=== PATIENT | female | born 1965 | race Caucasian/White ===

== ENCOUNTER → 2017-09-02 | Outpatient (CLI) | payer BC ==
[2017-09-02] MEDS: BUPIVACAINE MPF 0.5% 10 ML VIAL for KCIC. IJ (13:27)
[2017-09-02] MEDS: LIDOCAINE 1% Multi-Dose 20 ML VIAL. ID (13:27)
[2017-09-02] MEDS: methylPREDNISolone ACETATE 40 MG/ML VIAL. INT ART (13:28)
[2017-09-02] MEDS: IOHEXOL 300 MG/ML 50 ML VIAL. INT ART (13:28)
== END | disposition home or self-care (01) ==
LOC: KCIC 11:45
DX: M16.12 Unilateral primary osteoarthritis, left hip (principal); Z88.5 Allergy status to narcotic agent; I10 Essential (primary) hypertension; F17.200 Nicotine dependence, unspecified, uncomplicated
CPT/HCPCS: 20610; 77002; J1030; Q9967

== ENCOUNTER → 2017-10-10 | Outpatient (CLI) | payer BC ==
[2017-10-10 09:36] LABS: ADD MAN DIFF? NO
[2017-10-10 10:05] LABS: ALBUMIN 3.7 g/dL (3.4-5.0); ANION GAP 9 (6-14); BASO % 0 % (0-3); BLOOD UREA NITROGEN 12 mg/dL (7-20); CALCIUM 9.8 mg/dL (8.5-10.1); CARBON DIOXIDE 28 mmol/L (21-32); CHLORIDE 103 mmol/L (98-107); CREATININE 0.8 mg/dL (0.6-1.0); EOS # 0.1 x10^3/uL (0.0-0.7); EOS % 1 % (0-3); GFR 74.7; GLUCOSE 101 mg/dL (70-99); HEMATOCRIT 40.9 % (36.0-47.0); HEMOGLOBIN 14.1 g/dL (12.0-15.5); LYMPH # 1.7 x10^3/uL (1.0-4.8); LYMPH % 17 % (24-48); MEAN CORPUSCULAR HEMOGLOBIN 32 pg (25-35); MEAN CORPUSCULAR HGB CONC 34 g/dL (31-37); MEAN CORPUSCULAR VOLUME 93 fL (79-100); MONO # 0.5 x10^3/uL (0.0-1.1); MONO % 5 % (0-9); NEUT # 7.8 x10^3uL (1.8-7.7); NEUT % 77 % (31-73); PLATELET COUNT 289 x10^3/uL (140-400); POTASSIUM 3.7 mmol/L (3.5-5.1); RED CELL DISTRIBUTION WIDTH 13.5 % (11.5-14.5); SODIUM 140 mmol/L (136-145); WHITE BLOOD COUNT 10.2 x10^3/uL (4.0-11.0)
[2017-10-10 10:21] LABS: PARTIAL THROMBOPLASTIN TIME 30 SEC (24-38); PROTHROMBIN TIME PATIENT 12.6 SEC (11.7-14.0)
[2017-10-10 12:07] LABS: SEDIMENTATION RATE 30 (0-25)
[2017-10-10 13:26] LABS: BILIRUBIN,URINE SMALL (NEG); CLARITY,URINE CLEAR; COLOR,URINE YELLOW; GLUCOSE,URINE NEGATIVE (NEG); NITRITE,URINE NEGATIVE (NEG); PROTEIN,URINE NEGATIVE (NEG-TRACE)
[2017-10-10 14:11] LABS: BACTERIA,URINE 0 /HPF (0-FEW); SQUAMOUS EPITHELIAL CELL,UR MOD /LPF; WBC,URINE 0 /HPF (0-4); YEAST,URINE PRESENT /HPF
[2017-10-10 23:13] LABS: MRSA BY PCR Negative (Negative)
== END | disposition home or self-care (01) ==
LOC: SURGPAT 13:13
DX: Z01.818 Encounter for other preprocedural examination (principal); I10 Essential (primary) hypertension; Z87.891 Personal history of nicotine dependence
CPT/HCPCS: 36415; 71046; 80048; 81001; 82040; 85025; 85610; 85651; 85730; 87641; 93005

== ENCOUNTER 2017-10-24 06:02 | Inpatient (IN) | payer BC ==
[2017-10-24] MEDS ORDERED: IV RINGERS,LACTATED 1000ML 1,000 ML IV (07:00)
[2017-10-24] MEDS: SCOPOLAMINE 1.5MG PATCH. TD (07:00)
[2017-10-24] MEDS: HYDROcodone/APAP 7.5/325MG 1 TAB TABLET PO (07:00)
[2017-10-24] MEDS ORDERED: PROCHLORPERAZINE 10 MG/2 ML VIAL. IV ×2 (07:00→09:30)
[2017-10-24] MEDS ORDERED: LIDOCAINE 1% PF 2 ML VIAL. ID ×2 (07:00)
[2017-10-24] MEDS: IV RINGERS,LACTATED 1000ML 1,000 ML IV (07:00)
[2017-10-24] MEDS ORDERED: fentaNYL PF VIAL 100 MCG/2 ML VIAL IV ×3 (07:00)
[2017-10-24] MEDS: MELOXICAM 7.5 MG TABLET PO (07:01)
[2017-10-24] MEDS ORDERED: LIDOCAINE 2% PF Vial for OR 5 ML VIAL. (07:07)
[2017-10-24] MEDS ORDERED: ROCURONIUM 50 MG/5 ML VIAL. (07:07)
[2017-10-24] MEDS ORDERED: PROPOFOL 20 ML IV (07:07)
[2017-10-24] MEDS ORDERED: MIDAZOLAM HCL/PF 2 MG/2 ML VIAL. (07:07)
[2017-10-24] MEDS ORDERED: fentaNYL PF VIAL 250 MCG/5 ML VIAL ×2 (07:08→07:58)
[2017-10-24 07:32] LABS: PARTIAL THROMBOPLASTIN TIME 28 SEC (24-38); PROTHROMBIN TIME PATIENT 12.4 SEC (11.7-14.0)
[2017-10-24] MEDS: TRANEXAMIC ACID 1,000 MG in IV NS 50ML -- 1ST BAG INJ (07:36)
[2017-10-24] MEDS: TV=100ml MORPHINE 5 MG, KETOROLAC 30 MG, ROPIVacaine 0.5% PF 60 ML, EPINEPH... INT ART (07:46)
[2017-10-24] MEDS ORDERED: DEXAMETHASONE SOD PHOS 20 MG/5 ML VIAL. (07:52)
[2017-10-24] MEDS ORDERED: ONDANSETRON PF 4 MG/2 ML VIAL. (07:52)
[2017-10-24] MEDS ORDERED: MORPHINE SULFATE 10 MG/ML VIAL. (08:11)
[2017-10-24] MEDS ORDERED: GLYCOPYRROLATE 1 MG/5 ML VIAL. (08:44)
[2017-10-24] MEDS ORDERED: NEOSTIGMINE METHYLSULFATE 5 MG/5 ML SYRINGE. (08:44)
[2017-10-24] MEDS ORDERED: PHENYLEPHRINE in 0.9% NACL PF 1 MG/10 ML SYRINGE. IV (08:53)
[2017-10-24] MEDS: TRANEXAMIC ACID 1,000 MG in IV NS 50ML -- 2ND BAG INJ (09:00)
[2017-10-24] MEDS: IV NORMAL SALINE 1000ML BAG 1,000 ML IV (09:30)
[2017-10-24] MEDS ORDERED: DEXTROSE 50% 25 GM / 50ML DISP.SYRIN. IV (09:30)
[2017-10-24] MEDS ORDERED: traMADol 50 MG TABLET PO (09:30)
[2017-10-24] MEDS ORDERED: oxyCODONE/APAP 5/325 1 TAB TABLET PO (09:30)
[2017-10-24] MEDS ORDERED: NALOXONE 0.4 MG/ML VIAL. IV (09:30)
[2017-10-24] MEDS ORDERED: HYDROcodone/APAP 7.5/325MG 1 TAB TABLET PO (09:30)
[2017-10-24] MEDS ORDERED: METOCLOPRAMIDE HCL 10 MG/2 ML VIAL. IV (09:30)
[2017-10-24] MEDS ORDERED: ACETAMINOPHEN 325 MG TABLET. PO (09:30)
[2017-10-24] MEDS ORDERED: diphenhydrAMINE 50 MG/ML VIAL IV (09:30)
[2017-10-24] MEDS ORDERED: PROCHLORPERAZINE 5 MG TABLET. PO (09:30)
[2017-10-24] MEDS ORDERED: HYDROcodone/APAP 10/325 1 TAB TABLET PO (09:30)
[2017-10-24] MEDS ORDERED: fentaNYL PF VIAL 100 MCG/2 ML VIAL (09:51)
[2017-10-24] MEDS: fentaNYL PF VIAL 100 MCG/2 ML VIAL IV ×4 (09:56→10:40)
[2017-10-24] MEDS ORDERED: SEVOFLURANE > 120 MINUTES. IH (10:08)
[2017-10-24] MEDS: PROCHLORPERAZINE 10 MG/2 ML VIAL. IV (10:52)
[2017-10-24] MEDS: MORPHINE SULFATE 4 MG/ML DISP.SYRIN. IV (12:00)
[2017-10-24] MEDS: IV DEXTROSE 5 %-0.45 % NACL 1,000 ML IV ×2 (12:04→22:29)
[2017-10-24] MEDS: CYCLOBENZAPRINE 10 MG TABLET. PO ×2 (12:05→21:06)
[2017-10-24] MEDS: MORPHINE SULFATE/PF 30 ML IV ×2 (12:29→23:42)
[2017-10-24] MEDS ORDERED: ceFAZolin SODIUM 1 GM in IV DEXTROSE 5% 50 ML IV (13:00)
[2017-10-24] MEDS: ceFAZolin SODIUM IV Push 1 GM VIAL. IVP ×2 (13:02→16:55)
[2017-10-24] MEDS: WARFARIN 7.5 MG TABLET. PO (16:55)
[2017-10-24] MEDS: FERROUS SULFATE 325 MG TABLET. PO (16:55)
[2017-10-24] MEDS: MIRTAZAPINE 15 MG TABLET PO (21:06)
[2017-10-24] MEDS: CELECOXIB 100 MG CAPSULE. PO (21:06)
[2017-10-24] MEDS: ATORVASTATIN CALCIUM 40 MG TABLET. PO (21:06)
[2017-10-24] MEDS: ZOLPIDEM 5 MG TABLET. PO (21:14)
[2017-10-25] MEDS: ceFAZolin SODIUM IV Push 1 GM VIAL. IVP (01:09)
[2017-10-25 04:48] LABS: INR 1.3 (0.8-1.1); PROTHROMBIN TIME PATIENT 15.3 SEC (11.7-14.0)
[2017-10-25 05:12] LABS: HEMATOCRIT 32.3 % (36.0-47.0); HEMOGLOBIN 10.8 g/dL (12.0-15.5); MEAN CORPUSCULAR HGB CONC 34 g/dL (31-37)
[2017-10-25] MEDS ORDERED: MAGNESIUM HYDROXIDE 2,400 MG/30 ML ORAL.SUSP. PO (06:00)
[2017-10-25] MEDS: LEVOTHYROXINE 112 MCG TABLET PO (07:11)
[2017-10-25] MEDS: PANTOPRAZOLE 40 MG TABLET.DR. PO (07:11)
[2017-10-25] MEDS: IV DEXTROSE 5 %-0.45 % NACL 1,000 ML IV ×2 (08:00→18:00)
[2017-10-25] MEDS: CYCLOBENZAPRINE 10 MG TABLET. PO ×3 (08:03→21:16)
[2017-10-25] MEDS: CITALOPRAM 20 MG TABLET. PO (08:03)
[2017-10-25] MEDS: CELECOXIB 100 MG CAPSULE. PO ×2 (08:03→21:16)
[2017-10-25] MEDS: SENNOSIDES/DOCUSATE 8.6/50MG TABLET. PO (08:04)
[2017-10-25] MEDS: MULTIVITAMIN with MINERAL TABLET. PO (08:04)
[2017-10-25] MEDS: FERROUS SULFATE 325 MG TABLET. PO ×2 (08:04→16:56)
[2017-10-25] MEDS: oxyCODONE/APAP 7.5/325 1 TAB TABLET PO (08:05)
[2017-10-25] MEDS: amLODIPine BESYLATE 5 MG TABLET PO (09:00)
[2017-10-25] MEDS: IV NORMAL SALINE 1000ML BAG 1,000 ML IV ×2 (09:30→21:07)
[2017-10-25] MEDS: CALCIUM CARBONATE 500 MG TAB.CHEW PO (12:45)
[2017-10-25] MEDS: oxyCODONE/APAP 10/325 1 TAB TABLET PO ×4 (12:46→22:25)
[2017-10-25] MEDS ORDERED: BISACODYL 10 MG SUPP.RECT. PR (16:00)
[2017-10-25] MEDS: WARFARIN 5 MG TABLET. PO (16:20)
[2017-10-25] MEDS: MAG HYDROX/ALUMINUM HYD/SIMETH 30 ML ORAL.SUSP PO (16:22)
[2017-10-25] MEDS: ATORVASTATIN CALCIUM 40 MG TABLET. PO (21:16)
[2017-10-25] MEDS: MIRTAZAPINE 15 MG TABLET PO (21:16)
[2017-10-25] MEDS: traMADol 50 MG TABLET PO (21:17)
[2017-10-25] MEDS: 0.9 % SODIUM CHLORIDE 10 ML DISP.SYRIN. IV (21:18)
[2017-10-26] MEDS: oxyCODONE/APAP 10/325 1 TAB TABLET PO ×5 (02:03→14:54)
[2017-10-26] MEDS: LEVOTHYROXINE 112 MCG TABLET PO (05:21)
[2017-10-26 06:25] LABS: INR 2.4 (0.8-1.1); PROTHROMBIN TIME PATIENT 25.1 SEC (11.7-14.0)
[2017-10-26] MEDS: PANTOPRAZOLE 40 MG TABLET.DR. PO (06:55)
[2017-10-26] MEDS: SENNOSIDES/DOCUSATE 8.6/50MG TABLET. PO (08:24)
[2017-10-26] MEDS: FERROUS SULFATE 325 MG TABLET. PO (08:24)
[2017-10-26] MEDS: CITALOPRAM 20 MG TABLET. PO (08:24)
[2017-10-26] MEDS: MULTIVITAMIN with MINERAL TABLET. PO (08:24)
[2017-10-26] MEDS: CYCLOBENZAPRINE 10 MG TABLET. PO ×2 (08:24→14:32)
[2017-10-26] MEDS: CELECOXIB 100 MG CAPSULE. PO (08:24)
[2017-10-26] MEDS: amLODIPine BESYLATE 5 MG TABLET PO (08:28)
[2017-10-26 09:06] LABS: HEMATOCRIT 31.1 % (36.0-47.0); HEMOGLOBIN 10.5 g/dL (12.0-15.5); MEAN CORPUSCULAR HGB CONC 34 g/dL (31-37)
[2017-10-26] MEDS: WARFARIN 1 MG TABLET. PO (14:33)
== END 2017-10-26 15:00 | disposition home health service (06) | DRG 470 ==
LOC: OPSVCIP 06:02 → 4 SOUTHEST 11:30
PROC: 0SRB06Z Replacement of Left Hip Joint with Oxidized Zirconium on Polyethylene Synthetic Substitute, Open Approach (ICD-10-PCS; principal; 2017-10-24 07:20)
DX: M16.12 Unilateral primary osteoarthritis, left hip (principal); Z88.5 Allergy status to narcotic agent
CPT/HCPCS: 36415; 72170; 85014; 85018; 85610; 85730; 86850; 86900; 86901; 88304; 88311; 97116-GP; 97150-GP; 97162-GP; 97166-GO; 97530-GP; 97535-GO; A7015; C1713; J0171; J0690; J0780; J1100; J1885; J2001; J2250; J2270; J2370; J2405; J2704; J2710; J2795; J3010; J3490; J7030; J7120

== ENCOUNTER 2017-11-08 09:16 | Emergency (ER) | payer BC ==
[2017-11-08] MEDS: fentaNYL PF VIAL 100 MCG/2 ML VIAL IV (10:03)
== END 2017-11-08 11:52 | disposition home or self-care (01) ==
LOC: ER 09:16
DX: K56.41 Fecal impaction (principal); Z96.649 Presence of unspecified artificial hip joint; Z88.5 Allergy status to narcotic agent
CPT/HCPCS: 74018; 96374; 99284; J3010

== ENCOUNTER → 2017-11-28 | Outpatient (CLI) | payer BC ==
[2017-11-28 11:34] LABS: INR 1.2 (0.8-1.1); PROTHROMBIN TIME PATIENT 15.1 SEC (11.7-14.0)
== END | disposition home or self-care (01) ==
LOC: LAB 09:53
DX: Z79.01 Long term (current) use of anticoagulants (principal); I10 Essential (primary) hypertension; M16.12 Unilateral primary osteoarthritis, left hip
CPT/HCPCS: 36415; 85610

== ENCOUNTER → 2018-01-24 | Outpatient (CLI) | payer BC ==
[2017-11-08 11:10] VITALS: BP 122/56
[~2018-01-24] MED LIST: AMLO5TAB7 PO; ATOR40TA59 PO; CYCL10TA2 PO; DOCU-150 PO; ESCITALOPRAM OX20 MG PO; HYDR-2766 PO; LEVO112T4 PO; MIRT30TA3 PO; OXYC-411 PO; PANT40TA5 PO; TRAM50TA PO; WARF1TAB74 PO
--- NOTE | 2018-01-24 16:08 | KCIC ---
MRI of the lumbar spine to include the sacrum without contrast 01/24/2018 CLINICAL HISTORY: Low back pain and sacral pain which radiates down the left hip. TECHNIQUE: Unenhanced T1-weighted and T2-weighted sagittal and axial and inversion recovery sagittal images the lumbar spine were obtained. T1-weighted and fat-saturated T2-weighted sagittal axial and coronal and T2-weighted axial images of the sacrum were obtained. FINDINGS: Minimal S-shaped curvature of the thoracolumbar spine is seen. Degenerative signal changes and loss of height are seen involving the L5-S1 discs. Degenerative signal changes are seen within the marrow surrounding this disc. The conus medullaris is normal morphology, position, and signal characteristics. At the L1-2 and L2-3 disc spaces there are minimal to mild generalized disc bulges. Degenerative changes are seen involving the facet joints bilaterally. These findings do not result in significant central spinal canal or neural foraminal stenosis. At the L3-4 disc space there is a mild generalized disc bulge. This is eccentric to the left. Degenerative changes are seen involving the facet joints bilaterally. There is mild ligamentum flavum hypertrophy bilaterally. There is prominence of the posterior epidural fat. These findings when combined result in mild central spinal canal stenosis. No neural foraminal stenosis is seen. At the L4-5 disc space there is a mild generalized disc bulge. This is eccentric to the left. Degenerative changes are seen involving the facet joints bilaterally. There is mild to moderate ligamentum flavum hypertrophy bilaterally. These findings when combined result in mild central spinal canal stenosis. No neural foraminal stenosis is seen. At the L5-S1 disc space there is a minimal generalized disc bulge. Degenerative changes are seen involving the facet joints bilaterally. Small facet joint effusions are seen. Synovial cysts are seen projecting posteriorly from the facet joints. These measure 7 to 8 mm in size. There is mild ligamentum flavum hypertrophy bilaterally. These findings when combined do not result in significant central spinal canal or neural foraminal stenosis. The marrow signal of the sacrum/coccyx is within normal limits. Mild degenerative changes are seen involving both SI joints. No occult fracture is seen. No abnormal soft tissue mass is noted. IMPRESSION: 1. The changes of degenerative disc disease are seen involving the lumbar spine. These findings results in mild central spinal canal stenosis at L3-4 and L4-5. No neural foraminal stenosis is seen. 2. Mild degenerative changes are seen involving both SI joints. Electronically signed by: Henry Fishman MD (01/24/2018 4:04 PM) [facility]-[id number]
== END | disposition home or self-care (01) ==
LOC: KCIC MRI 14:02
PROVIDERS: ATTEND Family Medicine
DX: M51.36 Other intervertebral disc degeneration, lumbar region (principal); M47.898 Other spondylosis, sacral and sacrococcygeal region; M48.061 Spinal stenosis, lumbar region without neurogenic claudication; M25.48 Effusion, other site; M71.38 Other bursal cyst, other site; I10 Essential (primary) hypertension; Z87.891 Personal history of nicotine dependence; Z88.5 Allergy status to narcotic agent
CPT/HCPCS: 72148; 72195

== ENCOUNTER → 2018-08-02 | Outpatient (CLI) | payer BC ==
[2017-11-08 11:10] VITALS: BP 122/56
[~2018-08-02] MED LIST changes: +AMLO5TAB10 PO; -AMLO5TAB7 PO; -HYDR-2766 PO; +HYDR-2769 PO
--- NOTE | 2018-08-02 11:09 | KCIC ---
EXAM: Lumbar spine, 5 views. HISTORY: Pain. COMPARISON: MRI dated 01/24/2018. FINDINGS: 5 views lumbar spine are obtained. There is minimal lumbar levocurvature centered at L4. There is minimal retrolisthesis of L5 on S1. There is minimal decreased anterior vertebral body height and the superior endplate Schmorl's node at L1. No acute or subacute fracture is seen. There is facet arthropathy predominantly at the lower lumbar levels. There is a left hip arthroplasty partially included on the [id number]. IMPRESSION: 1. Multilevel degenerative change, primarily at the lumbosacral junction. 2. No acute osseous finding. Electronically signed by: Jaja León MD (08/02/2018 11:06 AM) [id number]
== END | disposition home or self-care (01) ==
LOC: KCIC 10:14
PROVIDERS: ATTEND Family Medicine
DX: M47.817 Spondylosis without myelopathy or radiculopathy, lumbosacral region (principal); M12.88 Other specific arthropathies, not elsewhere classified, other specified site; Z96.642 Presence of left artificial hip joint
CPT/HCPCS: 72110

== ENCOUNTER → 2018-12-19 | Outpatient (CLI) | payer BC ==
[2017-11-08 11:10] VITALS: BP 122/56
[~2018-12-19] MED LIST changes: -PANT40TA5 PO; +PANT40TA77 PO
--- NOTE | 2018-12-19 15:01 | KCIC ---
EXAM: Abdomen, single view. HISTORY: Foreign body. Naval ring ball missing. COMPARISON: None. FINDINGS: A frontal view of the abdomen is obtained. There is gas and stool within the colon. There is no evidence of bowel obstruction. There are calcifications and clips. There is a left hip arthroplasty. No foreign body is seen. IMPRESSION: 1. Nonobstructive bowel gas pattern. 2. No suspicious foreign body. Electronically signed by: Jaja León MD (12/19/2018 2:58 PM) [place] [id number]
== END | disposition home or self-care (01) ==
LOC: KCIC 13:20
PROVIDERS: ATTEND Family Medicine
DX: M79.5 Residual foreign body in soft tissue (principal); Z96.641 Presence of right artificial hip joint
CPT/HCPCS: 74018

== ENCOUNTER → 2019-06-25 | Outpatient (CLI) | payer BC ==
[2017-11-08 11:10] VITALS: BP 122/56
--- NOTE | 2019-06-25 14:12 | KCIC ---
PROCEDURE: HAND BILAT 3V STUDY DATE: 06/25/2019 CLINICAL INDICATION / HISTORY: Primary osteoarthritis. Progressive stiffness in the hands, painful to stretch out of the fingers.. TECHNIQUE: PA, lateral and oblique views of the bilateral hands. COMPARISON: None FINDINGS: No fracture or dislocation is identified. The bone density is normal. The joint spaces are maintained, and there are no erosions to suggest an inflammatory arthropathy. The soft tissues are unremarkable. IMPRESSION: No acute osseous abnormality in either hand. No significant evidence of degenerative osteoarthrosis or inflammatory arthropathy is present. Electronically signed by: Gladys Elizabeth MD (06/25/2019 2:09 PM) [facility]
== END ==
LOC: KCIC 10:04
PROVIDERS: ATTEND Family Medicine
DX: M15.0 Primary generalized (osteo)arthritis (principal)
CPT/HCPCS: 73130

== ENCOUNTER → 2019-11-01 | Outpatient (CLI) | payer BC ==
[2017-11-08 11:10] VITALS: BP 122/56
[~2019-11-01] MED LIST changes: -LEVO112T4 PO; +LEVO112T49 PO; -OXYC-411 PO; +OXYC1TAB20 PO; +WARF1TAB2 PO; -WARF1TAB74 PO
--- NOTE | 2019-11-01 12:19 | KCIC ---
3 views the cervical spine without comparison for chronic neck pain. FINDINGS: There is straightening of the normal cervical lordosis. Intervertebral disc spaces are well-maintained. Alignment is normal. Prevertebral soft tissues are grossly unremarkable. Atlantoaxial articulation is intact. IMPRESSION: 1. No acute osseous abnormality of the cervical spine. Electronically signed by: Tam Escamilla MD (11/01/2019 12:16 PM) [id number]
== END | disposition home or self-care (01) ==
LOC: KCIC 10:24
PROVIDERS: ATTEND Family Medicine
DX: M54.2 Cervicalgia (principal); M40.50 Lordosis, unspecified, site unspecified; G89.29 Other chronic pain
CPT/HCPCS: 72040

== ENCOUNTER → 2020-06-09 | Outpatient (CLI) | payer BC ==
[2017-11-08 11:10] VITALS: BP 122/56
[~2020-06-09] MED LIST changes: +AMLO-186 PO; -AMLO5TAB10 PO
--- NOTE | 2020-06-09 13:59 | KCIC ---
EXAM: Lumbar spine MRI without contrast. HISTORY: Radiculopathy. TECHNIQUE: Multiplanar, multisequence magnetic resonance imaging of the lumbar spine was performed wi thout contrast. COMPARISON: 01/24/2018 FINDINGS: There is minimal grade 1 anterolisthesis of L5 on S1, measuring 3 mm. There is multilevel e ndplate remodeling. There are few small endplate Schmorl's nodes. There is no fracture. There is no s uspicious osseous lesion. The conus terminates at L2. There is cortical scarring involving the superi or left kidney. At L1-L2, there is no stenosis. At L2-L3, there is a minimal shallow left paracentral disc protrusion. There is no stenosis. At L3-L4, there is no stenosis. At L4-L5, there is a minimal disc bulge. There is minimal bilateral facet arthropathy. There is minim al left foraminal stenosis. There is mild central canal stenosis. At L5-S1, there is a right foraminal disc protrusion with slight superior extrusion and osteophyte co mplex superimposed on a minimal disc bulge. There is mild right and moderate left facet arthropathy. There is grade 1 anterolisthesis. There is mild right foraminal stenosis with abutment of the exiting right L5 nerve root. There is minimal central canal stenosis. IMPRESSION: 1. Multilevel degenerative change involving the lumbar spine, described in detail above. This is asso ciated with minimal left foraminal and mild central canal stenosis at L4-L5 and mild right foraminal stenosis with abutment of the exiting right L5 nerve root and minimal central canal stenosis L5-S1. 2. Note is made that the findings at L4-L5 have slightly progressed compared to the prior exam. The r emainder of the degenerative changes are similar compared to the prior exam. Electronically signed by: Jaja León MD (06/09/2020 1:56 PM) [id number]
== END ==
LOC: KCIC MRI 12:42
PROVIDERS: ATTEND Family Medicine
DX: M47.26 Other spondylosis with radiculopathy, lumbar region (principal); M51.17 Intervertebral disc disorders with radiculopathy, lumbosacral region; M48.07 Spinal stenosis, lumbosacral region; M43.17 Spondylolisthesis, lumbosacral region; M12.88 Other specific arthropathies, not elsewhere classified, other specified site; M25.78 Osteophyte, vertebrae
CPT/HCPCS: 72148

== ENCOUNTER → 2020-06-23 | Outpatient (CLI) | payer BC ==
[2017-11-08 11:10] VITALS: BP 122/56
[~2020-06-23] MED LIST changes: +DULO60CA6 PO; +GABA800T5 PO; +HYDR12.58 PO; +IOHEXOL 180 MG/ML 10 ML VIAL. ONE; +LUBI24CA7 PO; +MELO15TA23 PO; +ROCURONIUM 50 MG/5 ML VIAL. ONE; +methylPREDNISolone ACETATE 40 MG/ML VIAL. ONE; +methylPREDNISolone ACETATE 80 MG/ML VIAL. ONE
--- NOTE | 2020-06-23 14:43 | PDOC1 ---
INITIAL PAIN CONSULT DATE OF SERVICE: DOS: DATE: 06/23/20 TIME: 14:37 CHIEF COMPLAINT: Chief Complaint: Low back and right lower extremity pain HISTORY OF PRESENT ILLNESS: 55-year-old female presents history of pain low back and right lower extremity since about 2 months ago gradually increasing with time but not result of any specific injury that she is aware of. Patient has been doing some heavy repetitive lifting and mopping at her job and lifting heavy VATS at her place of employment as well which has been a lot of bending and lifting and this caused him significant pain in the low back and rating the right lower extremity patient reports is mostly in the posterior gluteus across the low back with increased radiation to the right lower extremity mostly the posterior gluteus posterior thigh posterior calf and also in the anterior thigh and calf as well less noticeably patient reports no symptoms on the left side. Patient describes pain is constant sharp stabbing throbbing and shooting with numbness and tingling the right leg radiating burning and cramping and aching in the low back. Patient did have an MRI scan lumbar spine showing multilevel degenerative change minimal left foraminal and mild central canal stenosis L4-5 mild right foraminal stenosis with abutment of the exiting right L5 nerve root and minimal central canal stenosis L5-S1 patient has been doing some chiropractic treatment which has been helpful temporarily also had physical therapy in the past which has not lasted more than a day or so patient is taking hydrocodone as well as gabapentin both of which do decrease the pain by about 20 to 30%. Patient rates her disability rating 0-10 10 being the worst is a 10 with family responsibilities recreation social activity occupation sexual behavior and life support activities in 4-5 with self-care activity specially getting dressed. Patient reports no motor loss but significant fatigability of the right leg with standing walking for more than 10 minutes. PAST MEDICAL HISTORY: PMH: Hyperlipidemia, hypertension, gastroesophageal reflux, irritable bowel syndrome, arthritis, hyperthyroidism PREVIOUS SURGERIES: Past Surgical Hx: Thyroidectomy, hysterectomy, left hip replacement CURRENT MEDICATIONS: Current Meds: Active Scripts Medications Dose Route/Sig Max Daily Dose Days Date Category Hydrochlorothiazide Tablet (Hydrochlorothiazide) 12.5 Mg Tablet 12.5 Mg PO DAILY 06/23/20 Reported Gabapentin 800 Mg Tablet 800 Mg PO TID 06/23/20 Reported Amitiza (Lubiprostone) 24 Mcg Capsule 24 Mcg PO BID 06/23/20 Reported Cymbalta (Duloxetine Hcl) 60 Mg Capsule.dr 1 Cap PO DAILY 06/23/20 Reported Meloxicam 15 Mg Tablet 1 Tab PO DAILY 30 06/23/20 Reported Hydrocodone-Apap 10-325 (Hydrocodone Bit/Acetaminophen) 1 Tab Tablet 1 Tab PO PRN Q6HRS PRN 06/23/20 Reported Amlodipine Besylate 5 Mg Tablet 5 Mg PO DAILY 10/11/17 Reported Cyclobenzaprine Hcl 10 Mg Tablet 10 Mg PO TID 10/07/17 Reported Atorvastatin Calcium 40 Mg Tablet 40 Mg PO HS 10/07/17 Reported Levothyroxine Sodium 112 Mcg Tablet 1 Tab PO DAILY 04/10/15 Reported Pantoprazole Sodium (Pantoprazole Sodium) 40 Mg Tablet.dr 1 Tab PO DAILY 04/10/15 Reported Mirtazapine 30 Mg Tablet 1 Tab PO QHS 04/10/15 Reported ALLERGIES; Allergies: Coded Allergies: codeine (Verified Allergy, Intermediate, 04/10/15) chest pains FAMILY HISTORY: Family Hx: No major medical problems or conditions that she is aware of. SOCIAL HISTORY: Social Hx: Patient does not drink alcohol smokes less than a pack a day but has for 42 years continues to smoke, is not use any illegal illicit or recreational drugs is single lives locally in [facility] and works at a local [employer] on her feet most of her working shifts. REVIEW OF SYSTEMS: ROS: Positive for those items mentioned in history of present illness, all systems are reviewed, otherwise negative ,and are complete full and well-documented on patient's chart. PHYSICAL EXAM: VS: Blood pressure is 116/91 pulse 99 respirations 18 temperature 98.8 F height 5 feet 4 inches weight is 158 pounds PE: PHYSICAL EXAMINATION: GENERAL: The patient is awake, alert, oriented, appropriate, very pleasant demeanor HEENT: Shows normocephalic, atraumatic. Extraocular movements are intact and symmetrical. Oral cavity: Mucous membranes moist and pink. Dentition is intact. NECK: Shows anterior throat supple without palpable lymphadenopathy noted. Swallow reflex symmetrical. CHEST: Shows normal on inspection. Breath sounds are clear bilaterally, no rales rhonchi or wheezes auscultated. HEART: Shows S1, S2 clear. No murmurs auscultated. ABDOMEN: Soft, nontender, nondistended, obese. No palpable organomegaly is noted. No rebound or guarding demonstrated. BACK: Shows spine grossly in the midline. Normal-appearing cervical lordotic curvature. There is slightly increased thoracic kyphosis, some minor flattening of the lumbar lordotic curvature. Lumbar paraspinous muscles show symmetrical on inspection, on palpation shows some moderate tenderness diffusely throughout the upper, middle and lower distribution of the paraspinous muscles bilaterally and also into the lower thoracic paraspinous musculature, firm and tender, but without specific trigger points, without radiation of pain. The patient has good rotational motion of the lumbar spine, both laterally as well as extension and flexion without significant difficulty. No tenderness over the spinous processes, sacrum or sacroiliac regions. EXTREMITIES: Lower extremities show deep tendon reflexes 2+ in the patellar and tendo calcaneus tendons. Motor exam is 4 on a scale of 5 with right dorsiflexion, extension, quadriceps and hamstring flexion and 5/5 on the left. Peripheral pulses are 1+ posterior tibial. No peripheral edema is noted bilaterally. Lower extremities are warm and dry to touch, equal in color and appearance. Straight leg raise noted to be mildly positive on the right at approximate 45 degrees with decreased with knee flexion, left side is negative. Gaenslen's and Ronny's maneuvers are negative bilaterally as well. The patient is able to stand, stand on her toes without significant difficulty or loss of balance, walks with a normal-appearing gait does not appear to favor the right or left lower extremity significantly not use any assistive devices to ambulate. SKIN: Shows warm and dry, good turgor. No edema. No sores, rashes or bruising throughout. IMPRESSION: Impression: 55-year-old female with approximate 2-month history increasing pain low back right lower extremity radicular fashion MRI scan lumbar spine as noted Hypertension Arthritis Cigarette smoking Plan: Options discussed with patient including conservative medical management physical therapies and interventional techniques. Patient would like to pursue interventional techniques that she is currently doing chiropractic treatment and exercises on her own. We discussed a lumbar epidural steroid injection using description as well as anatomical models to describe the procedure. Risks were discussed including but not limited to: Bleeding, infection, possibility of epidural hematoma and subsequent neurological compromise, dural puncture, headaches, spinal cord and/or nerve damage, side effects of steroid medication, and poor results regarding pain control. Patient understands and wished to proceed. Patient return to clinic in approximate 2 weeks for follow-up, was counseled as return appointment activity level and side effects to be aware of. Procedure is lumbar epidural steroid injection under local anesthetic using sterile prep and drape at the L5-S1 level using C-arm fluoroscopic guidance in both AP and lateral views medications injected is 120 mg Depo-Medrol + 10 mL preservative-free normal saline and 2 mL contrast- condition at discharge is stable patient tolerated procedure well had no complications. STEPHAN SIFUENTES MD Jun 23, 2020 14:43
== END | disposition home or self-care (01) ==
LOC: PNCL 12:42
PROVIDERS: ATTEND Anesthesiology
DX: M54.5 Low back pain (principal); M79.604 Pain in right leg; I10 Essential (primary) hypertension; K21.9 Gastro-esophageal reflux disease without esophagitis; M19.90 Unspecified osteoarthritis, unspecified site; E05.90 Thyrotoxicosis, unspecified without thyrotoxic crisis or storm; K58.9 Irritable bowel syndrome, unspecified; E78.00 Pure hypercholesterolemia, unspecified; F32.9 Major depressive disorder, single episode, unspecified; E03.9 Hypothyroidism, unspecified; F17.210 Nicotine dependence, cigarettes, uncomplicated; Z90.710 Acquired absence of both cervix and uterus; Z98.890 Other specified postprocedural states; Z96.642 Presence of left artificial hip joint; Z88.5 Allergy status to narcotic agent; Z79.899 Other long term (current) drug therapy; Z72.89 Other problems related to lifestyle
CPT/HCPCS: 62323; J1030; J1040; Q9965

== ENCOUNTER → 2020-09-19 | Outpatient (CLI) | payer OTHER ==
[2017-11-08 11:10] VITALS: BP 122/56
[~2020-09-19] MED LIST changes: -IOHEXOL 180 MG/ML 10 ML VIAL. ONE; -ROCURONIUM 50 MG/5 ML VIAL. ONE; -methylPREDNISolone ACETATE 40 MG/ML VIAL. ONE; -methylPREDNISolone ACETATE 80 MG/ML VIAL. ONE
[2020-09-19] MEDS: IOHEXOL 300 MG/ML 100ML VIAL. IV ONE (09:31)
[2020-09-19] MEDS: IOHEXOL 240 MG/ML 50ML VIAL. PO ONE (09:31)
--- NOTE | 2020-09-19 10:32 | KCIC ---
Exam Date: 09/19/2020 9:[address] ABDOMEN+PELVIS W Indication: Reason: Bloating 1-2 months, tightness after eating. / Spl. Instructions: 89mL Omni 300. Belching, sometimes followed by vomiting. / History: Hx. GERD, esophageal dysphagia, IBS, cholecyste ctomy, partial hysterectomy. TECHNIQUE: CT examination of the abdomen and pelvis was performed following the administration of or al and nonionic intravenous contrast. One or more of the following dose reduction techniques were ut ilized: *Automated exposure control (AEC) *Adjustment of mA and/or kV according to patient size *Use of iterative reconstruction technique *CT scan done according to ALARA, or ALARA/IMAGE GENTLY FINDINGS: The visualized lung bases are clear. The liver, gallbladder, spleen, pancreas, adrenal glands and kidneys are normal. Urinary bladder is normal in appearance. There is no bowel obstruction or inflammation. The appendix is normal. There is prominent intra-abdominal fat in the right lower quadrant which displaces loops of bowel, fox spicious for a lipoma measuring approximately 12 x 4 x 5 cm. Mild atherosclerotic calcifications are seen. No lymphadenopathy or ascites is seen. Degenerative changes are seen in the spine. Chronic healed pubic rami fractures are noted. IMPRESSION: Prominent intra-abdominal fat and the right lower quadrant with mass effect is suspicious for a lipom a. If clinically indicated, this could be further evaluated with MRI. Electronically signed by: Spencer Chicas MD (09/19/2020 10:29 AM) [facility]
== END ==
LOC: KCIC CT 07:53
PROVIDERS: ATTEND Family Medicine
DX: R14.0 Abdominal distension (gaseous) (principal); R10.31 Right lower quadrant pain
CPT/HCPCS: 74177; Q9966; Q9967

== ENCOUNTER → 2020-10-02 | Outpatient (CLI) | payer OTHER ==
[2017-11-08 11:10] VITALS: BP 122/56
[~2020-10-02] MED LIST changes: -DOCU-150 PO; +DOCU-158 PO; +GADOTERATE 7.5 MMOL/15ML VIAL. IVP ONE; +MIRT-8 PO; -MIRT30TA3 PO
--- NOTE | 2020-10-02 09:59 | KCIC ---
MRI STUDY OF THE PELVIS WITH AND WITHOUT CONTRAST Clinical indications: Abnormal CT study of the abdomen and pelvis. Specifically, lipomatous mass of t he right lower quadrant. History of abdominal bloating. TECHNIQUE: Pre and postcontrast enhanced MRI sequences of the pelvis were performed. A total of 12 cc of Clariscan was given intravenously. COMPARISON: CT study dated September 10, 2020. FINDINGS: There is prominent lipomatous tissue within the anterior right lower quadrant of the pelvis which is properitoneal and retroperitoneal in location and extends along the iliacus muscle with mil d displacement of bowel loops posteriorly and medially. This area measures roughly 10.2 cm in transve rse dimension and 5.3 cm in AP dimension and 9.3 cm in vertical dimension. The lipomatous tissue is h omogeneous without T2 increased signal or nodularity or significant septation. There is no discrete b order. There is no abnormal enhancement. Therefore, this is consistent with more focally prominent ar ea of fat deposition or lipoma. Left hip prosthesis is seen with associated paramagnetic susceptibili ty artifact. Otherwise no other abnormal marrow signal or marrow infiltrative process is seen. Old he aled fractures of the right obturator ring are seen. No muscle edema is evident. No enhancing soft ti ssue mass is seen. IMPRESSION: Lipomatous tissue is present within the right lower quadrant of the pelvis which may repr esent more focal prominent area of fat deposition or lipoma. Follow-up CT study of the pelvis in 6 mo nths is recommended to ensure stability of this finding. This may be difficult area to follow clinica lly. Electronically signed by: Tim Bolaños MD (10/02/2020 9:56 AM) [id number]
== END ==
LOC: KCIC MRI 07:55
PROVIDERS: ATTEND Surgery
DX: R14.0 Abdominal distension (gaseous) (principal); R93.89 Abnormal findings on diagnostic imaging of other specified body structures
CPT/HCPCS: 72197; A9575

== ENCOUNTER → 2021-03-31 | Outpatient (CLI) | payer OTHER ==
[2017-11-08 11:10] VITALS: BP 122/56
[~2021-03-31] MED LIST changes: +CYCL10TA19 PO; -CYCL10TA2 PO; -DULO60CA6 PO; +DULO60CA7 PO; -GADOTERATE 7.5 MMOL/15ML VIAL. IVP ONE; +IOHEXOL 240 MG/ML 50ML VIAL. PO ONE; +IOHEXOL 300 MG/ML 100ML VIAL. IV ONE
--- NOTE | 2021-03-31 11:46 | KCIC ---
CT of the pelvis with contrast 03/31/2021 INDICATION: Follow-up, pelvic mass COMPARISON STUDY: CT of the abdomen and pelvis September 19, 2020. MRI of pelvis October 02, 2020. TECHNIQUE: Multidetector CT imaging of the pelvis performed following the administration of IV contra st. FINDINGS: Mildly prominent fat in the right lower quadrant mesentery is similar to, to slightly less prominent. This does not appear to be particularly well marginated. No overt focal mass effect is s een. No overt inflammatory changes or stranding is identified. No bowel obstruction is seen. No free fluid or free air seen in the abdomen or pelvis. Hysterectomy noted. Evaluation of the bladder is sparrow ited secondary to beam hardening artifact from a left hip arthroplasty. No acute osseous changes are identified. IMPRESSION: 1.Mildly prominent fat in the right lower quadrant mesentery is similar to mildly less prominent. 2. No acute intra-abdominal abnormality is identified CT DOSING PQRS STATEMENT: One or more of the following individualized dose reduction techniques were utilized for this examinat ion: 1. Automated exposure control 2. Adjustment of the mA and/or kV according to patient size 3. Use of iterative reconstruction technique Electronically signed by: Aamir Parrish MD (03/31/2021 11:44 AM) [id number]
== END ==
LOC: KCIC CT 08:03
PROVIDERS: ATTEND Surgery
DX: E65 Localized adiposity (principal); R19.00 Intra-abdominal and pelvic swelling, mass and lump, unspecified site; K59.00 Constipation, unspecified
CPT/HCPCS: 72193; Q9966; Q9967

== ENCOUNTER → 2021-05-06 | Day surgery (SDC) | payer OTHER ==
[~2021-05-06] VITALS: Ht 163.8 cm; Wt 77.7 kg
[~2021-05-06] MED LIST changes: -IOHEXOL 240 MG/ML 50ML VIAL. PO ONE; -IOHEXOL 300 MG/ML 100ML VIAL. IV ONE; +LIDOCAINE 2% PF 5 ML VIAL. ONE; +PROPOFOL 10 MG/ML (20ML) VIAL. IV ONE
[2021-05-06 07:26] VITALS: BP 119/83
[2021-05-06] MEDS: IV RINGERS,LACTATED 1000ML 1,000 ML IV SCH ×2 (07:37→07:38)
--- NOTE | 2021-05-06 08:14 | CONS ---
DATE OF CONSULTATION: 05/06/2021 REASON FOR CONSULTATION: Colorectal screening, diffuse abdominal pain. HISTORY OF PRESENT ILLNESS: A 56-year-old female with past medical history significant for hypertension, constipation, dysphagia, fibromyalgia, GERD, seen for screening colon. Bowel habits are regular without diarrhea or constipation. There has been some occasional cramping. No bleeding is noted. She also has diffuse pain, which is unrelieved with meals and/or defecation. Previous imaging has been unrevealing. With continued issues, she requests additional evaluation. PAST MEDICAL HISTORY: Hypertension, hyperlipidemia, hypothyroidism, osteoarthrosis, GERD. ALLERGIES: CODEINE. MEDICATIONS: Amlodipine, atorvastatin, Cymbalta, gabapentin, hydrochlorothiazide, levothyroxine, Amitiza, meloxicam, mirtazapine, pantoprazole. FAMILY HISTORY: Significant for colon cancer with her mother. SOCIAL HISTORY: She is a former smoker and nondrinker. PAST SURGICAL HISTORY: Status post thyroid surgery, lysis of adhesions, joint replacement surgery, hysterectomy, cholecystectomy, partial colectomy, , breast surgery. REVIEW OF SYSTEMS: Per records. PHYSICAL EXAMINATION: GENERAL: Reveals a well-nourished, well-developed female, alert, cooperative, in no acute distress. VITAL SIGNS: Temperature 97.7, pulse 100, respiratory rate 18. LUNGS: Clear. CARDIOVASCULAR: S1, S2, without S3, S4 or appreciable murmur. ABDOMEN: Reveals a soft abdomen, normal bowel sounds, without appreciable hepatosplenomegaly. EXTREMITIES: Reveal no cyanosis, clubbing or edema. Multiple surgical incisions are noted. IMPRESSION: 1. Family history of colon cancer. Surveillance colon exam is recommended. 2. Diffuse abdominal pain, etiology to be determined. Partial small bowel obstruction, irritable bowel syndrome, ulcers, celiac disease in the differential. Therefore, recommend upper endoscopy. Risks and benefits of procedure have been discussed. The patient is willing to proceed at this time. I would like to thank Dr. Reyes for allowing us to consult and participate in the patient's care. MOIZ HENDERSON: Eric TID: [id number] CC: Eloina REYES MD
[2021-05-06 08:42] VITALS: BP 113/63
--- NOTE | 2021-05-07 16:06 | PATHOLOGY ---
[facility] Accession Number: [id number] . 01 Material submitted: . rectum - RECTAL POLYP BIOPSY . 01 Clinical history: . ABD PAIN, CONSTIPATION EGD/COLONOSCOPY . 02 Diagnosis: Colorectal biopsies, rectal polyp: - Hyperplastic polyp. ([facility]; 05/07/2020) S 05/07/2021 1004 Local . 02 Comment: There are no adenomatous changes or evidence of malignancy. ([facility]:millie; 05/07/2021) . 02 Electronically signed: . Les Dalton MD, Pathologist NPI- [id number] . 01 Gross description: . The specimen is received in formalin, labeled "Pancho, Prisca, rectal polyp biopsy". Received are multiple fragments of pale davila tissue measuring 1.0 x 0.3 x 0.1 cm in aggregate dimensions. The specimen is filtered and entirely submitted in cassette A1. ([facility]; 05/06/2021) NRI/NRI 05/06/2021 1637 Local . 02 Pathologist provided ICD-10: K62.1 . 02 CPT . 417377 Specimen Comment: A courtesy copy of this report has been sent to [phone], [phone] Specimen Comment: [id number] Specimen Comment: Report sent to / DR REYSE Performed at: 01 [facility] [address] [facility] [address], [place] [id number] MD Irvin Phillip MD Phone: [phone] Performed at: 02 [facility] [address], [place] [id number] MD Les Dalton MD Phone: [phone]
== END | disposition home or self-care (01) ==
LOC: ENDOS 07:00
PROVIDERS: ATTEND Internal Medicine Gastroenterology
DX: R10.84 Generalized abdominal pain (principal); K29.50 Unspecified chronic gastritis without bleeding; K62.1 Rectal polyp; K64.0 First degree hemorrhoids; K63.89 Other specified diseases of intestine; K31.89 Other diseases of stomach and duodenum; I10 Essential (primary) hypertension; E78.00 Pure hypercholesterolemia, unspecified; E03.9 Hypothyroidism, unspecified; K21.9 Gastro-esophageal reflux disease without esophagitis; M19.90 Unspecified osteoarthritis, unspecified site; F32.9 Major depressive disorder, single episode, unspecified; F17.210 Nicotine dependence, cigarettes, uncomplicated; Z79.899 Other long term (current) drug therapy; Z90.49 Acquired absence of other specified parts of digestive tract; Z90.710 Acquired absence of both cervix and uterus; Z98.890 Other specified postprocedural states; Z80.0 Family history of malignant neoplasm of digestive organs; Z20.822 Contact with and (suspected) exposure to COVID-19
CPT/HCPCS: 43235; 45380; 87426; J2704

== ENCOUNTER → 2021-05-18 | Outpatient (CLI) | payer OTHER ==
[2021-05-06 08:42] VITALS: BP 113/63
[~2021-05-18] MED LIST changes: -LIDOCAINE 2% PF 5 ML VIAL. ONE; -PROPOFOL 10 MG/ML (20ML) VIAL. IV ONE
--- NOTE | 2021-05-18 10:52 | KCIC ---
XR EXAM OF ANKLE_LEFT 3V History: Left ankle pain, bruising after fall. Comparison: None. Technique: 3 views of the left ankle. Findings: Osseous mineralization is normal. Linear calcifications at the lateral aspect of the calcaneus with o verlying soft tissue swelling. The ankle mortise and talar dome are intact. Impression: 1. Findings suspicious for avulsion injury at the lateral calcaneus. Electronically signed by: Stephane Ibarra MD (05/18/2021 10:50 AM) [id number]
== END ==
LOC: KCIC 10:17
PROVIDERS: ATTEND Family Medicine
DX: M25.572 Pain in left ankle and joints of left foot (principal); M25.472 Effusion, left ankle; W19.XXXA Unspecified fall, initial encounter
CPT/HCPCS: 73610

== ENCOUNTER → 2021-08-21 | Outpatient (CLI) | payer OTHER ==
[2021-05-06 08:42] VITALS: BP 113/63
--- NOTE | 2021-08-21 16:39 | RAD ---
History: Reason: bloating and abd. pain / Spl. Instructions: / History: Procedure: The patient ate a standard meal containing 2.0 mCi Tc-99m sulfur colloid. Scintigraphic images of the abdomen were obtained. Counts were obtained. Findings: Retention percentages are as follows: 1 Hr: 99 2 Hr:79 3 Hr:92 4 Hr:53 Normal Retention Percentage Range is as Follows: 1 Hr: 35-91% 2 Hr: 2.7-60% 3 Hr: 0.5-28% 4 Hr: 0-10% Impression: Delayed gastric emptying is identified with elevated gastric retention throughout. Electronically signed by: French Griffin MD (08/21/2021 4:37 PM) [id number]
== END ==
LOC: NM 09:05
PROVIDERS: ATTEND Internal Medicine Gastroenterology
DX: K30 Functional dyspepsia (principal); K31.89 Other diseases of stomach and duodenum; R14.0 Abdominal distension (gaseous)
CPT/HCPCS: 78264; A9541